=== PATIENT | male | born 1940 | race Caucasian/White ===

== ENCOUNTER 2016-07-29 11:04 | Emergency (ER) | payer MEDICARE ==
[~2016-07-29 11:04] MED LIST: ASA5GR PO; B1100 PO; BIOTIN10 MG OR; BL FLAX SEED1000 MG PO; CALTRA600D PO; CHELATED ZINC PO; COQ-10200 MG PO; COQ10100 MG; CRANBERRY1 TAB PO; FISH OIL PO; FISH-EPA1000 MG PO; FLAXSEED OIL PO; FOLIC PO; Folic Acid PO; GARLIC; GINKGO BILO2 PO; GINSENG PO; HARD NAILS PO; L-LYSINE ACE500 MG PO; L-Lysine PO; LEVITRA5 PO; LEVOTHYROXIN50 MCG PO; LIPITOR40 PO; LUTEIN1 CAP PO; MAGNESIUM PO; MAGOX4 PO; MANGANESE PO; MELATONIN5 M1 PO; MSM PO; MSM500 MG PO; MULTIPLE VIT PO; MYLANTA ULTR1 TAB PO; NAP250 PO; NIACIN 500 PO; OCEAN NAS; POTASSIUM PO; PRIN10 PO; RED YEAS1 PO; SAW PALMETT2 PO; SELENIUM PO; SHARK CARTILAGE; UROCIT-K 5540 MG OR; VIAGRA25 PO; VITAMIN B PO; VITAMIN B-12 PO; VITAMIN B-121000 MC1 SL; VITAMIN C PO; VITAMIN D PO; VITAMIN D31000 UNIT PO; VITAMIN E PO; VITC500 PO; VITE PO; ZOLOFT25 MG PO; [UNRECOGNIZED DRUG - OTHER] TOP
[2016-07-29 11:52] LABS: BASOPHILS 0.1 %; BASOPHILS ABSOLUTE 0.01 10/3/uL (0.0-0.16); EOSINOPHILS 0 %; ER CBC TAT 0 Hrs 08 Mins; HEMOGLOBIN 15.4 g/dL (13.6-17.8); IMMATURE GRANULOCYTES 0.2 %; IMMATURE GRANULOCYTES ABSOLUTE 0.02 10/3/uL (0.0-0.11); LYMPHOCYTES 4.3 %; LYMPHOCYTES ABSOLUTE 0.39 10/3/uL (0.67-4.30); MEAN CORPUSCULAR HEMOGLOB 34.1 pg (26.0-34.0); MEAN CORPUSCULAR VOLUME 94.9 fL (80-100); MEAN PLATELET VOLUME 10.8 fL (9.2-13.0); MONOCYTES 2.8 %; MONOCYTES ABSOLUTE 0.26 10/3/uL (0.21-1.20); NEUTROPHILS 92.6 %; NEUTROPHILS ABSOLUTE 8.46 10/3/uL (2.02-8.40); PLATELET COUNT 161 10/3/uL (150-400); RBC DISTRIBUTION WIDTH 12.8 % (12.0-16.0); RED CELL COUNT 4.51 10/6/uL (4.7-6.1); WHITE BLOOD CELLS 9.1 10/3/uL (4.5-10.5)
[2016-07-29 11:53] LABS: HEMATOCRIT 42.8 % (40.0-51.0); MANUAL DIFF NO %
[2016-07-29 11:59] LABS: INTERNATIONAL NORMAL RATI 1.1 UNITS (-); PARTIAL THROMBO TIME 29.9 SEC (22.5-37.2); PROTIME (NOT ORD) 14.1 SEC (12.0-14.5)
[2016-07-29 12:00] LABS: ASCORBIC ACID (UR NOT ORDER) NEG (NEG); BILIRUBIN, URINE MODERATE (NEG); ER URINALYSIS TAT 0 Hrs 16 Mins; KETONE, URINE TRACE MG/DL (NEG); LEUKOCYTE ESTERASE(NOT OR NEG (NEG); NITRITE (URINE) NEG (NEG); WBC (NOT ORDERED) (RFLEX) 2 (0-5)
[2016-07-29 12:10] LABS: BUN (BLOOD UREA NITROGEN) 17 MG/DL (6-23); CALCIUM, SERUM 8.4 MG/DL (8.5-10.4); CHEST PAIN PROFILE TAT 0 Hrs 26 Mins; CHLORIDE, SERUM 104 MMOL/L (96-112); CO2 (CARBON DIOXIDE) 26 MMOL/L (24-34); CREATININE 1.58 MG/DL (0.70-1.30); GFR AFRICAN AMERICAN 48 ML/MIN (>=60); GFR NON AFRICAN AMERICAN 41 ML/MIN (>=60); POTASSIUM, SERUM 4.1 MMOL/L (3.5-5.3); SODIUM, SERUM 140 MMOL/L (135-148); TROPONIN I <0.02 NG/ML (<0.05)
[2016-07-29 12:11] LABS: ACETAMINOPHEN LEVEL (TYLENOL) < 2.0 MCG/ML (10.0-20.0); ALCOHOL < 10 MG/DL (0); GLUCOSE, SERUM 170 MG/DL (60-99); SALICYLATE < 1.7 MG/DL (-)
[2016-07-29 12:18] LABS: AMPHETAMINES (NOT ORD) NEG (NEG); BARBITURATES (NOT ORDERED NEG (NEG); BENZODIAZEPINES (NOT ORD) POS (NEG); CANNABINOIDS (THC) NEG (NEG); COCAINE (NOT ORDERED) NEG (NEG); OPIATES NEG (NEG); PHENCYCLIDINE(PCP) NEG (NEG); TRICYCLICS NEG (NEG)
[2016-07-29] MEDS ORDERED: MAX25 PO (13:11)
[2016-07-29] MEDS ORDERED: ULTRAM50 PO (13:11)
[2016-07-29] MEDS ORDERED: ATV.5 PO (13:12)
[2016-07-29] MEDS ORDERED: MIRAPEX5 PO (13:12)
[2016-07-29] MEDS ORDERED: RELA5 PO (13:12)
[2016-07-29] MEDS ORDERED: *UNABLE3 (13:13)
[2016-07-30 07:43] LABS: ALLENS TEST Pos; BE (BASE EXCESS) -0.3 MEQ/L (0 +/- 2.5); CARBOXYHEMOGLOBIN 1.4 % (0-3); HCO3 (ACTUAL BICARBONATE) 25.1 MEQ/L (23-27); HEMOBLOGIN CONTENT 15.7 G/DL (14-18); INSTRUMENT SERIAL # 8087; METHEMOGLOBIN 0.4 % (0-3); O2 CONTENT 20.9 VOL% (18-24); OPERATOR ID 14335; PCO2 (CO2 TENSION) 44 MMHG (35-45); PO2 (O2 TENSION) 83 MMHG (79-93); SAMPLE Arterial; pH 7.38 (7.37-7.43)
== END 2016-07-29 13:30 | disposition short-term general hospital (02) ==
LOC: ER 11:04
PROVIDERS: Emergency Medicine
DX: I62.00 Nontraumatic subdural hemorrhage, unspecified (principal); S90.01XA Contusion of right ankle, initial encounter; I10 Essential (primary) hypertension; Z88.1 Allergy status to other antibiotic agents; Z91.013 Allergy to seafood; Z79.899 Other long term (current) drug therapy
CPT/HCPCS: 31720; 36600; 70450; 71010; 72125; 80048; 80305; 80307; 81001; 82805; 83735; 84484; 85025; 85610; 85730; 93005; 99285